=== PATIENT | female | born 1985 | race Two or more races ===

== ENCOUNTER 2016-12-07 16:46 | Emergency (ER) | payer SELFPAY ==
[~2016-12-07] VITALS: Ht 157.5 cm; Wt 80.7 kg
[~2016-12-07 16:46] MED LIST: CIPROFLOXACIN500 M2 ORAL; IBUPROFEN600 MG ORAL; NKM
[2016-12-07 16:54] VITALS: BP 116/78
--- NOTE | 2016-12-07 17:25 | Emergency Room Report ---
History of Present Illness General Chief Complaint: Pain Source: Patient Present Illness HPI 31-year-old female presents to the emergency department complaining of 10 out of 10 in severity joint pain in the wrists, elbows, hips, knees, ankles with some swelling x4 days. Patient also reports some joint stiffness. Patient denies fevers, chills, and erythema, trauma or fall. Patient denies rash however she states she did feel flushed on the second day in her face which resolved on its own. denies muscle cramping. She denies cough,neck pain/ stiffness, headache, or recent travel. Pt. reports her neighbor has the flu. pt. states she is healthy otherwise, this has never happened in the past. pt. reports recently had pcp appt. where she was told she has abnormally high TG's, but normal blood work for everything else. denies recent sore throat, vaginal d /c or history of STI. Denies abdominal pain, dysuria, hematuria, frequency. Pt took Tylenol with no relief. 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 Denies CP, Palpitations, LOC, AMS, dizziness, Changes in Vision, Sensation, paresthesias, or a sudden severe headache. Allergies: Coded Allergies: No Known Allergies (Unverified , 10/27/13) Patient History Past Medical History: see triage record Past Surgical History: none Pertinent Family History: none Last Menstrual Period: 11/20/16 Now: No Immunizations: other - not UTD with flu or tetanus Reviewed Nursing Documentation: PMH: Agreed, PSxH: Agreed Nursing Documentation-PMH Past Medical History: No Stated History Review of Systems All Other Systems: negative except mentioned in HPI Physical Exam Vital Signs Date Time Temp Pulse Resp B/P (MAP) Pulse Ox O2 Delivery O2 Flow Rate FiO2 12/07/16 16:50 97.9 72 18 116/78 97 Room Air Sp02 EP Interpretation: reviewed, normal General Appearance: normal inspection, well appearing, no apparent distress, alert, GCS 15, non-toxic Head: normocephalic, atraumatic Eyes: bilateral eye normal inspection, bilateral eye PERRL ENT: hearing grossly normal, normal pharynx, normal voice, uvula midline, moist mucus membranes Neck: full range of motion, no meningismus, no bony tend Respiratory: lungs clear, normal breath sounds, speaking full sentences Cardiovascular #1: regular rate, rhythm, no edema, normal capillary refill Cardiovascular #2: 2+ radial (R), 2+ radial (L) Gastrointestinal: non tender, soft, no guarding Rectal: deferred Musculoskeletal: back normal, gait/station normal, normal range of motion, no calf tenderness, tender - TTP primarily in the left metacarpals and left wrist, mild ttp to right wrist, bilateral elbows, and bilateral ankles, no erythema, no appreciable swelling, no obvious deformities, FROM of all joints, no bruises Neurologic: alert, oriented x3, responsive, motor strength/tone normal, sensory intact, normal gait, speech normal, other - 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 Lymphatic: no adenopathy Medical Decision Making PA Attestation Dr. Lira is my supervising Physician whom patient management has been discussed with. Diagnostic Impression: Primary Impression: Pain, joint, multiple sites ER Course 31-year-old female presents to the emergency department complaining of 10 out of 10 in severity joint pain in the wrists, elbows, hips, knees, ankles with some swelling x4 days. Patient also reports some joint stiffness. Patient denies fevers, chills, and erythema, trauma or fall. Patient denies rash however she states she did feel flushed on the second day in her face which resolved on its own. denies muscle cramping. She denies cough,neck pain/ stiffness, headache, or recent travel. Pt. reports her neighbor has the flu. pt. states she is healthy otherwise, this has never happened in the past. pt. reports recently had pcp appt. where she was told she has abnormally high TG's, but normal blood work for everything else. denies recent sore throat, vaginal d /c or history of STI. Denies abdominal pain, dysuria, hematuria, frequency. Pt took Tylenol with no relief. 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 Denies CP, Palpitations, LOC, AMS, dizziness, Changes in Vision, Sensation, paresthesias, or a sudden severe headache. Ddx considered but are not limited to RA/OA, SLE, rheumatic fever, gout/ pseudogout, septic joint, STI, tetanus just to name a few. Vital signs: are WNL, pt. is afebrile H&PE are most consistent with non-infectious joint pain, no evidence of acute gout attack. HPI does not warrant radiological studies at this time. ORDERS: none required at this time, the diagnosis is clinical ED INTERVENTIONS: - Motrin PO -d/w pt. the importance of following up with PCP. will d/c with conservative treatment for her symptoms. d/w pt. to return promptly to the ED with worsening or new symptoms. DISCHARGE: At this time pt. is stable for d/c to home. Will provide printed patient care instructions, and any necessary prescriptions. Care plan and follow up instructions have been discussed with the patient prior to discharge. Last Vital Signs Date Time Temp Pulse Resp B/P (MAP) Pulse Ox O2 Delivery O2 Flow Rate FiO2 12/07/16 16:54 97.9 18 116/78 97 Room Air 12/07/16 16:50 72 Disposition: HOME, SELF-CARE Condition: Stable Scripts Naproxen Sodium (NAPROXEN SODIUM) 550 Mg Tablet 550 MG ORAL TWICE A WEEK, #20 TAB 0 Refills Prov: Ema David 12/07/16 Referrals: NOT CHOSEN IPA/,REFERRING (PCP) Departure Forms: Return to Work Return to Work Date: Dec 10, 2016 Work Restrictions: None Return to Full Activity: Dec 10, 2016 Patient Instructions: Joint Pain Additional Instructions: Take medications as directed. Follow up with a Primary Care Provider in 3-5 days, even if your symptoms have resolved. For more in depth evaluation for joint pain of multiple sites with Facial Flushing. --Please review list of primary care clinics, if you do not already have a primary care provider Return sooner to ED if new symptoms occur, or current symptoms become worse. - Please note that this Emergency Department Report was dictated using Team [employer] master technology software, occasionally this can lead to erroneous entry secondary to interpretation by the dictation equipment. Ema David Dec 07, 2016 17:25
[2016-12-07] MEDS ORDERED: NAPROXEN SODIU550 M1 ORAL (17:27)
[2016-12-07 17:50] VITALS: BP 116/78
== END 2016-12-07 17:50 | disposition home or self-care (01) ==
LOC: EMR 17:01
DX: M25.532 Pain in left wrist (principal); M25.531 Pain in right wrist; M25.522 Pain in left elbow; M25.521 Pain in right elbow; M25.552 Pain in left hip; M25.551 Pain in right hip; M25.562 Pain in left knee; M25.561 Pain in right knee; M25.572 Pain in left ankle and joints of left foot; M25.571 Pain in right ankle and joints of right foot; M79.89 Other specified soft tissue disorders
CPT/HCPCS: 99283